=== PATIENT | male | born 2005 | race Caucasian/White ===

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

== ENCOUNTER 2023-04-06 02:58 | Emergency (ER) | payer OTHER ==
[~2023-04-06] VITALS: Ht 177.8 cm; Wt 73.9 kg
[2023-04-06] MEDS ORDERED: TERB250T91 (03:03)
[2023-04-06] MEDS ORDERED: DOXY100T (03:03)
[2023-04-06] MEDS ORDERED: BACITRACIN OINTMENT 30GM TUBE TOP STA (07:19)
[2023-04-06] MEDS ORDERED: [UNRECOGNIZED DRUG - CODE] TOP (07:23)
[2023-04-06] MEDS ORDERED: BACI500O8 TOP (07:23)
[2023-04-06 07:38] VITALS: BP 133/72; TEMP 97.7; O2SAT 97
== END 2023-04-06 07:55 | disposition home or self-care (01) ==
LOC: M ED 02:58
DX: L55.0 Sunburn of first degree (principal); L55.1 Sunburn of second degree; Z79.899 Other long term (current) drug therapy